=== PATIENT | female | born 1955 | race Caucasian/White ===

== ENCOUNTER 2017-12-10 19:07 | Emergency (ER) | payer BC ==
[~2017-12-10] VITALS: Ht 180.3 cm; Wt 92.0 kg
[~2017-12-10 19:07] MED LIST: DILT30TA34 PO; HYDR28.462 TP
[2017-12-10] MEDS ORDERED: diltiazem 5mg/ml 5ml inj. IV ONE ×2 (19:20→20:20)
[2017-12-10] MEDS ORDERED: normal saline 1000ML IV soln IVB ONE ×2 (19:25→20:55)
[2017-12-10 19:56] LABS: ISTAT CREATININE 1.1 mg/dL (0.6-1.1); ISTAT HGB 13.6 g/dl (12.0-16.0); ISTAT IONIZED CALCIUM 1.07 mmol/L (1.03-1.32); ISTAT K 3.6 mmol/L (3.5-5.1); POC BUN/CREATININE RATIO 24.5 (6.6-38.0)
[2017-12-10 19:57] LABS: BASOPHILS % (AUTO) 0.6 % (0-1); EOSINOPHILS # (AUTO) 0.2 X10'3 (0-0.9); HEMATOCRIT 40.2 % (35.0-45.0); HEMOGLOBIN 13.9 g/dl (12.0-16.0); LYMPHOCYTES # (AUTO) 3.5 X10'3 (1.1-4.8); LYMPHOCYTES % (AUTO) 43.8 % (21-51); MEAN CORPUSCULAR HEMOGLOBIN 31.2 PG (27.0-31.0); MEAN CORPUSCULAR HGB CONC 34.7 % (33.0-36.5); MEAN CORPUSCULAR VOLUME 89.8 FL (78-98); MEAN PLATELET VOLUME 8.8 FL (7.4-10.4); MONOCYTES # (AUTO) 0.8 X10'3 (0-0.9); MONOCYTES % (AUTO) 9.7 % (2-12); NEUTROPHILS # (AUTO) 3.5 X10'3 (1.8-7.7); NEUTROPHILS % (AUTO) 43.9 % (42-75); PLATELET COUNT 221 X10'3 (140-440); RED BLOOD COUNT 4.47 X10'6 (4.20-5.60); RED CELL DISTRIBUTION WIDTH 13.9 % (11.5-14.5); WHITE BLOOD COUNT 7.9 X10'3 (4.5-11.0)
[2017-12-10] MEDS ORDERED: etomidate 2mg/ml inj. IV ONE (20:00)
[2017-12-10 20:07] LABS: INR 0.9 INR; PARTIAL THROMBOPLASTIN TIME 26 SECONDS (22-32); PROTHROMBIN TIME 9.7 SECONDS (9.0-12.0)
[2017-12-10] MEDS ORDERED: LORazepam 2 mg/ml vial ONE (20:09)
[2017-12-10] MEDS ORDERED: LORazepam 2 mg/ml vial IV ONE ×2 (20:10→20:15)
[2017-12-10] MEDS ORDERED: potassium Cl 20 mEq SR tablet PO STA (20:17)
[2017-12-10 20:19] LABS: ALBUMIN 3.9 G/DL (3.4-5.0); ALKALINE PHOSPHATASE 114 IU/L (46-116); ANION GAP 13 (8-16); BILIRUBIN,TOTAL 0.4 MG/DL (0.1-1.0); BLOOD UREA NITROGEN 27 MG/DL (7-18); BUN/CREATININE RATIO 22.9 (6.6-38.0); CALCIUM 7.9 MG/DL (8.5-10.1); CHLORIDE 105 MMOL/L (99-107); CREATININE 1.18 MG/DL (0.40-0.90); SODIUM 141 MMOL/L (135-145); TOTAL CARBON DIOXIDE 23.1 MMOL/L (24-32); TOTAL PROTEIN 7.8 G/DL (6.4-8.2); eGFR 46 ML/MIN
[2017-12-10] MEDS ORDERED: potassium Cl 20 mEq SR tablet PO PRN (20:20)
[2017-12-10 20:41] LABS: ALANINE AMINOTRANSFERASE 35 U/L (12-78); ASPARTATE AMINO TRANSFERASE 22 U/L (10-37); GLUCOSE 98 MG/DL (70-104); POTASSIUM 3.5 MMOL/L (3.5-5.1)
[2017-12-10] MEDS: magnesium 1gm/100ml D5W IVPB 100 ML IV SCH ×2 (20:43→22:11)
[2017-12-10 22:45] VITALS: BP 123/69
== END 2017-12-10 22:52 | disposition home or self-care (01) ==
LOC: ER 19:07
DX: I48.91 Unspecified atrial fibrillation (principal); K21.9 Gastro-esophageal reflux disease without esophagitis; Z90.89 Acquired absence of other organs; Z98.51 Tubal ligation status; Z88.6 Allergy status to analgesic agent
CPT/HCPCS: 36415; 71045; 80047; 80053; 83735; 83880; 84484; 85025; 85610; 85730; 92960; 93005; 94760; 96365; 96366; 96375; 99291; J2060; J3490; J7030; A4620